=== PATIENT | female | born 1980 | race Caucasian/White ===

== ENCOUNTER 2024-08-29 06:46 | Day surgery (SDC) | payer OTHER ==
[2024-08-25 17:42] VITALS: BMI 29.2
[2024-08-29] MEDS ORDERED: ACETAMINOPHEN INJECTION 100 ML ONE (08:47)
[2024-08-29] MEDS ORDERED: MIDAZOLAM HCL 2 MG/2 ML SINGLE DOSE VIAL ONE (12:41)
[2024-08-29] MEDS ORDERED: PROPOFOL 20 ML ONE (12:57)
[2024-08-29] MEDS ORDERED: LIDOCAINE HCL/PF 2% SDV 5ML VIAL ONE (13:02)
[2024-08-29] MEDS ORDERED: IBUPROFEN 800 MG/8 ML IJ IVPB PRN (13:28)
[2024-08-29] MEDS ORDERED: ONDANSETRON 4 MG/2 ML VIAL IVPUSH PRN (13:28)
[2024-08-29] MEDS ORDERED: IBUPROFEN 600 MG TABLET (FP) PO PRN (13:28)
[2024-08-29] MEDS ORDERED: oxyCODONE HCL 5 MG TABLET PO PRN (13:28)
[2024-08-29] MEDS ORDERED: ELECTROLYTE-148 SOLN 1,000 ML IV SCH (13:30)
[2024-08-29] MEDS ORDERED: DEXAMETHASONE SOD PHOSPHATE 4 MG/1 ML VIAL ONE (13:34)
[2024-08-29] MEDS ORDERED: KETOROLAC TROMETHAMINE 30 MG/1 ML VIAL ONE (13:34)
[2024-08-29] MEDS ORDERED: ONDANSETRON 4 MG/2 ML VIAL ONE (13:34)
[2024-08-29] MEDS ORDERED: LACTATED RINGERS SOLUTION 1,000 ML IV SCH (13:45)
[2024-08-29 14:22] VITALS: RESP 18
[2024-08-29 16:07] VITALS: PULSE 65; TEMP 97.5
[2024-08-29 16:58] VITALS: BP 126/74
== END 2024-08-29 14:30 | disposition home or self-care (01) ==
LOC: JASU-SURG 06:46
PROVIDERS: ATTEND Obstetrics & Gynecology
PROC: 0UDB8ZZ Extraction of Endometrium, Via Natural or Artificial Opening Endoscopic (ICD-10-PCS; principal; 2024-08-29 12:00)
DX: N93.8 Other specified abnormal uterine and vaginal bleeding (principal); Z85.3 Personal history of malignant neoplasm of breast
CPT/HCPCS: 81025; 86850; 86900; 86901; 88305-TC; 94760